=== PATIENT | female | born 1945 | race Caucasian/White ===

== ENCOUNTER 2020-12-04 16:06 | Emergency (ER) | payer OTHER, SELFPAY ==
[2020-12-04 16:16] VITALS: BP 135/64; PULSE 73; RESP 20; TEMP 36.6; O2SAT 98
--- NOTE | 2020-12-04 16:24 | DI.RAD.S_ITS ---
PROCEDURE: XR CHEST 1V INDICATIONS: chest pain TECHNIQUE: One view of the chest was acquired. COMPARISON: None. FINDINGS: Surgical changes and devices: None. Lungs and pleura: Lungs are clear. No pleural effusions or pneumothorax. Mediastinum: Mediastinal contours appear normal. Heart size is normal. Bones and chest wall: No suspicious bony lesions. Overlying soft tissues appear unremarkable. IMPRESSION: No acute process. Dictated by: Genesis Akins M.D. on 12/04/2020 at 17:00 Approved by: Genesis Akins M.D. on 12/04/2020 at 17:00
[2020-12-04] MEDS: SODIUM CHLORIDE 0.9% 1,000 ML 125 ML IV (17:01)
[2020-12-04 17:03] LABS: Add Manual Diff / Slide Review NO; Basophils Absolute Auto 0 /uL (0-100); Basophils Percent Auto 0.6 % (0-2); Eosinophils Absolute Auto 0 /uL (0-450); Eosinophils Percent Auto 0.7 % (2-4); Hematocrit 39.9 % (36-46); Hemoglobin 13.6 g/dL (12.0-16.0); Lymphocytes Absolute Auto 500 /uL (1100-4500); Lymphocytes Percent Auto 10.1 % (25-40); Mean Corpuscular HGB Conc 34.1 % (30-36); Mean Corpuscular Hemoglobin 32.1 PG (26-34); Mean Corpuscular Volume 94.1 fL (80-100); Monocytes Absolute Auto 700 /uL (0-900); Monocytes Percent Auto 16.1 % (3-14); Neutrophils Absolute Auto 3300 /uL (1500-7000); Neutrophils Percent Auto 72.5 % (50-75); Platelet Count 213 X10^3/uL (150-400); Red Blood Cell Count 4.24 X10^6/uL (4.0-5.2); Red Cell Distribution Width 13.4 % (11.6-14.8); White Blood Cell Count 4.5 X10^3/uL (4.5-11.0)
[2020-12-04 17:14] LABS: Alanine Aminotransferase 24 IU/L (<35); Albumin 3.9 g/dL (3.5-5.0); Albumin Globulin Ratio 1.4 (1.0-2.8); Alkaline Phosphatase 74 U/L (38-126); Aspartate Aminotransferase 33 IU/L (14-36); BUN Creatinine Ratio 32.2 (6-22); Bilirubin Total 0.2 mg/dL (0.2-1.3); Blood Urea Nitrogen 19 mg/dL (7-17); Carbon Dioxide 23 mmol/L (22-32); Chloride 102 mmol/L (98-107); Creatine Kinase 78 U/L (30-135); Estimated Glomerular Filt Rate > 60.0 mL/min (>60); Globulin 2.7 g/dL (1.7-4.1); Glucose 96 mg/dL (80-110); HEMOLYSIS < 15 (0-50); Lipase 55 U/L (23-300); Sodium 133 mmol/L (137-145); Total Protein 6.6 g/dL (6.3-8.2)
[2020-12-04 17:25] LABS: Troponin I < 0.012 ng/mL (0.01-0.034)
[2020-12-04 17:34] LABS: COVID19 -Nasal RAPID POSITIVE (Negative)
[2020-12-04 18:08] LABS: Lactate Dehydrogenase 559 U/L (313-618)
[2020-12-04 18:22] LABS: Bacteria Urine None Seen; RBC Urine None Seen (0-5/HPF); WBC Urine None Seen (0-5/HPF)
[2020-12-04 18:34] LABS: Appearance Urine UA CLEAR; Bilirubin Urine UA NEGATIVE (NEGATIVE); Color Urine UA YELLOW; Glucose Urine UA NEGATIVE (Negative); Ketones Urine UA NEGATIVE (NEGATIVE); Leukocyte Esterase Urine UA NEGATIVE (NEGATIVE); Nitrite Urine UA NEGATIVE (Negative); Occult Blood Urine UA TRACE-LYSED (Negative); Protein Urine UA NEGATIVE (Negative); Specific Gravity Urine UA <=1.005 (1.000-1.035); Urobilinogen Urine UA 0.2 E.U./dL (0.2)
--- NOTE | 2020-12-04 18:51 | ED.GENADULT ---
HPI - General Adult General Chief complaint: Weakness Stated complaint: exhausted for 10 days, got better, tanked today Time Seen by Provider: 12/04/20 18:30 Source: patient Mode of arrival: Ambulatory History of Present Illness HPI narrative: Patient is a 75-year-old female who is here with family for evaluation of feeling exhausted. Symptoms started approximately 10 days ago. She seemed to be improving but then today thinks seem to get worse. No chest pain. No shortness of breath. Has had some fevers and cough. She is greater than 2 weeks status post her 2nd Moderna COVID-19 vaccine. She has been taking Tylenol for symptoms. Review of Systems Constitutional Constitutional: Reports fatigue, Reports fever(s), Reports lethargy, Reports malaise and Reports weakness Eyes Eyes: Reports system reviewed and no additional complaints, except as documented ENT Ears, Nose, Mouth, and Throat: Reports system reviewed and no additional complaints, except as documented Cardiovascular Cardiovascular: Reports system reviewed and no additional complaints, except as documented Respiratory Respiratory: Reports chest congestion Gastrointestinal Gastrointestinal: Reports system reviewed and no additional complaints, except as documented Genitourinary Genitourinary: Reports system reviewed and no additional complaints, except as documented Musculoskeletal Musculoskeletal: Reports system reviewed and no additional complaints, except as documented Integumentary/Breasts Skin/Breast: Reports system reviewed and no additional complaints, except as documented Neurologic Neurologic: Reports weakness Endocrine Endocrine: Reports fatigue Hematologic/Lymphatic On Anticoagulants: No Allergic/Immunologic Allergic/Immunologic: Reports system reviewed and no additional complaints, except as documented Patient History Social History lives independently: Yes Exam Initial Vital Signs Initial Vital Signs: Vital Signs Temperature 97.8 F 12/04/20 16:16 Pulse Rate 73 12/04/20 16:16 Respiratory Rate 20 12/04/20 16:16 Blood Pressure 135/64 12/04/20 16:16 Pulse Oximetry 98 12/04/20 16:16 Const General: cooperative and comfortable HENMT Head: normal to inspection Eyes General: appearance normal, both eyes and all related structures Neck Neck: normal visual inspection Chest Chest: normal inspection of the chest Resp Effort & Inspection: normal respiratory effort Auscultation: clear to auscultation bilaterally Cardio Rate: regular rate Rhythm: regular rhythm GI Inspection: normal to inspection Skin General: no rashes or lesions noted Neuro General: patient alert, patient awake, patient oriented x3 and moves all extremities Extrem General: normal to inspection and capillary refill normal Psych Appearance: grossly normal and well kempt Course Orders Ordered: ED Orders 12/04/20 16:52 Complete Blood Count AUTO DIFF Stat Comprehensive Metabolic Panel Stat LDH [Lactate Dehydrogenase] Stat Lipase Stat Magnesium Stat Troponin & CK Cardiac Panel Stat 12/04/20 18:15 Urinalysis and Microscopic Stat Discontinued Medications Sodium Chloride (Normal Saline 0.9%) 1,000 mls @ 125 mls/hr IV BOLUS ONE Stop: 12/05/20 00:23 Last Infusion: 12/04/20 19:01 Dose: 0 mls/hr Documented by: Admin: 12/04/20 17:01 Dose: 125 mls/hr Documented by: AMADOR Vital Signs Vital signs: Vital Signs - 8 hr 12/04/20 19:14 Pulse Rate 77 Respiratory Rate 18 Blood Pressure 131/69 Pulse Oximetry 99 Medical Decision Making Lab Data Lab results reviewed: Yes I reviewed the patient's lab results. Result diagrams: 12/04/20 16:52 12/04/20 16:52 Labs: Lab Results 12/04/20 12/04/20 12/04/20 Range/Units 16:38 16:52 16:52 WBC 4.5 (4.5-11.0) X10^3/uL RBC 4.24 (4.0-5.2) X10^6/uL Hgb 13.6 (12.0-16.0) g/dL Hct 39.9 (36-46) % MCV 94.1 (80-100) fL MCH 32.1 (26-34) PG MCHC 34.1 (30-36) % RDW 13.4 (11.6-14.8) % Plt Count 213 (150-400) X10^3/uL Neut % (Auto) 72.5 (50-75) % Lymph % (Auto) 10.1 L (25-40) % [place] % (Auto) 16.1 H (3-14) % Eos % (Auto) 0.7 L (2-4) % Baso % (Auto) 0.6 (0-2) % Neut # (Auto) 3300 (3986-9790) /uL Lymph # (Auto) 500 L (0438-8319) /uL [place] # (Auto) 700 (0-900) /uL Eos # (Auto) 0 (0-450) /uL Baso # (Auto) 0 (0-100) /uL Sodium 133 L (137-145) mmol/L Potassium 4.0 (3.4-5.1) mmol/L Chloride 102 (98-107) mmol/L Carbon Dioxide 23 (22-32) mmol/L BUN 19 H (7-17) mg/dL Creatinine 0.59 (0.52-1.04) mg/dL Estimated GFR > 60.0 (>60) mL/min BUN/Creatinine Ratio 32.2 H (6-22) Glucose 96 (80-110) mg/dL Calcium 9.0 (8.4-10.2) mg/dL Magnesium 2.0 (1.6-2.3) mg/dL Total Bilirubin 0.2 (0.2-1.3) mg/dL AST 33 (14-36) IU/L ALT 24 (<35) IU/L Alkaline Phosphatase 74 (38-126) U/L Lactate Dehydrogenase (313-618) U/L Total Creatine Kinase 78 (30-135) U/L CK-MB (CK-2) TNP CK-MB (CK-2) Rel Index TNP Troponin I < 0.012 (0.01-0.034) ng/mL Total Protein 6.6 (6.3-8.2) g/dL Albumin 3.9 (3.5-5.0) g/dL Globulin 2.7 (1.7-4.1) g/dL Albumin/Globulin Ratio 1.4 (1.0-2.8) Lipase 55 (23-300) U/L Urine Color Urine Appearance Urine pH (4.5-8.0) Ur Specific [place] (1.000-1.035) Urine Protein (Negative) Urine Glucose (UA) (Negative) g/dL Urine Ketones (NEGATIVE) Urine Occult Blood (Negative) Urine Nitrate (Negative) Urine Bilirubin (NEGATIVE) Urine Urobilinogen (0.2) E.U./dL Ur Leukocyte Esterase (NEGATIVE) Urine RBC (0-5/HPF) Urine WBC (0-5/HPF) Urine Bacteria (None) Ur Culture Indicated? SARS-CoV-2 (PCR) Positive H (Negative) 08/03/21 08/03/21 Range/Units 16:52 18:15 WBC (4.5-11.0) X10^3/uL RBC (4.0-5.2) X10^6/uL Hgb (12.0-16.0) g/dL Hct (36-46) % MCV (80-100) fL MCH (26-34) PG MCHC (30-36) % RDW (11.6-14.8) % Plt Count (150-400) X10^3/uL Neut % (Auto) (50-75) % Lymph % (Auto) (25-40) % [place] % (Auto) (3-14) % Eos % (Auto) (2-4) % Baso % (Auto) (0-2) % Neut # (Auto) (4476-3372) /uL Lymph # (Auto) (4594-7177) /uL [place] # (Auto) (0-900) /uL Eos # (Auto) (0-450) /uL Baso # (Auto) (0-100) /uL Sodium (137-145) mmol/L Potassium (3.4-5.1) mmol/L Chloride (98-107) mmol/L Carbon Dioxide (22-32) mmol/L BUN (7-17) mg/dL Creatinine (0.52-1.04) mg/dL Estimated GFR (>60) mL/min BUN/Creatinine Ratio (6-22) Glucose (80-110) mg/dL Calcium (8.4-10.2) mg/dL Magnesium (1.6-2.3) mg/dL Total Bilirubin (0.2-1.3) mg/dL AST (14-36) IU/L ALT (<35) IU/L Alkaline Phosphatase (38-126) U/L Lactate Dehydrogenase 559 (313-618) U/L Total Creatine Kinase (30-135) U/L CK-MB (CK-2) CK-MB (CK-2) Rel Index Troponin I (0.01-0.034) ng/mL Total Protein (6.3-8.2) g/dL Albumin (3.5-5.0) g/dL Globulin (1.7-4.1) g/dL Albumin/Globulin Ratio (1.0-2.8) Lipase (23-300) U/L Urine Color Yellow Urine Appearance Clear Urine pH 7.0 (4.5-8.0) Ur Specific [place] <=1.005 (1.000-1.035) Urine Protein Negative (Negative) Urine Glucose (UA) Negative (Negative) g/dL Urine Ketones Negative (NEGATIVE) Urine Occult Blood Trace-lysed (Negative) Urine Nitrate Negative (Negative) Urine Bilirubin Negative (NEGATIVE) Urine Urobilinogen 0.2 (0.2) E.U./dL Ur Leukocyte Esterase Negative (NEGATIVE) Urine RBC None seen (0-5/HPF) Urine WBC None seen (0-5/HPF) Urine Bacteria None seen (None) Ur Culture Indicated? Cult not indicated SARS-CoV-2 (PCR) (Negative) Imaging Data Chest x-ray: Radiologist's Impression: [address] [id number] ReportSigned Patient: Vanessa Mccain WMR#: [id number]: 3Acct:[id number]/Sex: 75 / FDate of Service: 12/04/20Loc: EDAccession Number: [id number] Procedure: XR chest 1V Ordering Provider: Mildred Mendez D.O. PROCEDURE: XR CHEST 1V INDICATIONS: chest pain TECHNIQUE: One view of the chest was acquired. COMPARISON: None. FINDINGS: Surgical changes and devices: None. Lungs and pleura: Lungs are clear. No pleural effusions or pneumothorax. Mediastinum: Mediastinal contours appear normal. Heart size is normal. Bones and chest wall: No suspicious bony lesions. Overlying soft tissues appear unremarkable. IMPRESSION: No acute process. Dictated by: Genesis Akins M.D. on 12/04/2020 at 17:00 Approved by: Genesis Akins M.D. on 12/04/2020 at 17:00 ECG Data Attestation: I personally reviewed and interpreted this ECG as follows: Interpretation: Sinus rhythm Ventricular rate is 61 Normal axis Normal QRS Normal QTC No ST T wave changes MDM Narrative Medical decision making narrative: Patient is positive for COVID-19. This does explain her presenting symptoms. She is not hypoxic. Not tachypneic. Is a clear lung exam. Chest x-ray is unremarkable. Labs reassuring. EKG reassuring. The long discussion with the patient and family at bedside regarding quarantine we also discussed strict return precautions. Will discharge home. Patient expressed understanding agreement the plan. Discharge Plan Departure Patient Disposition: Home Clinical Impression: COVID-19 Instructions: DI for COVID-19 (Suspected or Confirmed ), How to Care for Someone with COVID-19 Activity Restrictions/Additional Instructions: You were positive for COVID-19. This means that your now to isolate yourself for the next 10 days and be symptom-free for 24 hours. Continue all of your medications as directed. Return to the emergency department for any new or worsening symptoms
[2020-12-04 18:52] LABS: Culture Indicated Urine Cult Not Indicated
[2020-12-04 19:14] VITALS: BP 131/69; PULSE 77; RESP 18; O2SAT 99
== END 2020-12-04 19:14 | disposition home or self-care (01) ==
PROVIDERS: Emergency Medicine; Emergency Provider Emergency Medicine
DX: U07.1 COVID-19 (principal); R50.9 Fever, unspecified; R07.9 Chest pain, unspecified
CPT/HCPCS: 36415; 71045; 80053; 81001; 82550; 83615; 83690; 83735; 84484; 85025; 87635; 93005; 96360; 96361; 99284; C9803

== ENCOUNTER 2020-12-18 12:24 | Emergency (ER) | payer OTHER, SELFPAY ==
[2020-12-18] VITALS (13 sets, daily range): BP systolic 108–170; BP diastolic 52–72; PULSE 48–66; RESP 13–25; TEMP 36.8; O2SAT 93–98
--- NOTE | 2020-12-18 12:58 | DI.RAD.S_ITS ---
PROCEDURE: XR CHEST 1V INDICATIONS: fever eval for PNA TECHNIQUE: One view of the chest was acquired. COMPARISON: [facility], CR, XR CHEST 1V, 12/04/2020, 16:31. FINDINGS: Surgical changes and devices: Bilateral humeral suture anchors stable in appearance. Lungs and pleura: Lungs are clear. No pleural effusions or pneumothorax. Mediastinum: Mediastinal contours appear normal. Heart size is normal. Bones and chest wall: No suspicious bony lesions. Overlying soft tissues appear unremarkable. IMPRESSION: No acute cardiopulmonary disease process. Dictated by: Hilda Willams MD, PhD on 12/18/2020 at 13:14 Approved by: Hilda Willams MD, PhD on 12/18/2020 at 13:14
[2020-12-18 13:10] LABS: COVID19 -Nasal RAPID POSITIVE (Negative)
[2020-12-18 13:52] LABS: Add Manual Diff / Slide Review NO; Basophils Absolute Auto 0 /uL (0-100); Basophils Percent Auto 0.7 % (0-2); Eosinophils Absolute Auto 100 /uL (0-450); Eosinophils Percent Auto 1.8 % (2-4); Hematocrit 35.2 % (36-46); Hemoglobin 11.9 g/dL (12.0-16.0); Lymphocytes Absolute Auto 400 /uL (1100-4500); Lymphocytes Percent Auto 8.8 % (25-40); Mean Corpuscular HGB Conc 33.8 % (30-36); Mean Corpuscular Hemoglobin 31.6 PG (26-34); Mean Corpuscular Volume 93.3 fL (80-100); Monocytes Absolute Auto 800 /uL (0-900); Monocytes Percent Auto 16.5 % (3-14); Neutrophils Absolute Auto 3600 /uL (1500-7000); Neutrophils Percent Auto 72.2 % (50-75); Platelet Count 248 X10^3/uL (150-400); Red Blood Cell Count 3.77 X10^6/uL (4.0-5.2); Red Cell Distribution Width 12.7 % (11.6-14.8)
[2020-12-18 14:00] LABS: BUN Creatinine Ratio 23.3 (6-22); Blood Urea Nitrogen 14 mg/dL (7-17); Calcium 8.8 mg/dL (8.4-10.2); Carbon Dioxide 22 mmol/L (22-32); Chloride 105 mmol/L (98-107); Estimated Glomerular Filt Rate > 60.0 mL/min (>60); Glucose 99 mg/dL (80-110); HEMOLYSIS 24 (0-50); Lactate (Lactic Acid) 0.8 mmol/L (0.7-2.1); Potassium 3.9 mmol/L (3.4-5.1); Sodium 133 mmol/L (137-145)
[2020-12-18 14:17] LABS: Procalcitonin 0.06 ng/mL (<0.5)
[2020-12-18] MEDS: SODIUM CHLORIDE 0.9% 1,000 ML 1000 ML IV (14:35)
--- NOTE | 2020-12-18 15:20 | ED.GENADULT ---
HPI - General Adult General Chief complaint: Fever Stated complaint: NEW FEVER, COVID+ 2 WKS AGO, SOB Time Seen by Provider: 12/18/20 12:56 Source: patient and family Mode of arrival: Wheelchair Limitations: no limitations History of Present Illness HPI narrative: Patient is a 75-year-old female who was evaluated by myself approximately 2 weeks ago. Was diagnosed with COVID. Was not hypoxic. Was nontoxic appearing. Was discharged home. Since that time her symptoms did seem to improve somewhat however over the past 24-48 hours she seems to have worsened. She has had a fever. Has become very fatigued. Has had dizziness, her vertigo was returned, and some shortness of breath. She did not have any retesting since her last positive test. Related Data Allergies Allergy/AdvReac Type Severity Reaction Status Date / Time No Known Drug Allergies Allergy Verified 12/18/20 14:19 Review of Systems Constitutional Constitutional: Reports chills, Reports fatigue, Reports fever(s), Reports headache(s) and Reports lethargy Eyes Eyes: Reports as per HPI ENT Ears, Nose, Mouth, and Throat: Reports headache(s) Cardiovascular Cardiovascular: Reports system reviewed and no additional complaints, except as documented Respiratory Respiratory: Reports as per HPI Gastrointestinal Gastrointestinal: Reports system reviewed and no additional complaints, except as documented Genitourinary Genitourinary: Reports system reviewed and no additional complaints, except as documented Musculoskeletal Musculoskeletal: Reports system reviewed and no additional complaints, except as documented Integumentary/Breasts Skin/Breast: Reports system reviewed and no additional complaints, except as documented Neurologic Neurologic: Reports headache(s) Endocrine Endocrine: Reports fatigue Hematologic/Lymphatic On Anticoagulants: No Allergic/Immunologic Allergic/Immunologic: Reports system reviewed and no additional complaints, except as documented Patient History Medical History COVID-19 Social History lives independently: Yes Smoking Status: Never smoker Smoking Status: Never smoker alcohol intake frequency: 0-2 drinks per day Substance Use Type: does not use Exam Initial Vital Signs Initial Vital Signs: Vital Signs Temperature 98.2 F 12/18/20 12:30 Pulse Rate 66 12/18/20 12:30 Respiratory Rate 16 12/18/20 12:30 Blood Pressure 108/52 L 12/18/20 12:30 Pulse Oximetry 94 12/18/20 12:30 Const General: cooperative, comfortable and well developed [facility] Head: normal to inspection and normocephalic Eyes General: appearance normal, both eyes and all related structures Chest Chest: normal inspection of the chest Resp Effort & Inspection: normal respiratory effort Auscultation: clear to auscultation bilaterally Cardio Rate: regular rate Rhythm: regular rhythm GI Inspection: normal to inspection Skin General: no rashes or lesions noted Neuro General: patient alert, patient awake, patient oriented x3 and moves all extremities Extrem General: normal to inspection and capillary refill normal Psych Appearance: grossly normal and well kempt Course Orders Ordered: ED Orders 12/18/20 12:37 COVID19 -Nasal swab/Pre-Proc Stat 12/18/20 12:58 XR chest 1V Stat 12/18/20 13:45 Basic Metabolic Panel Stat Complete Blood Count AUTO DIFF Stat Lactate (Lactic Acid) Stat Procalcitonin Stat 12/18/20 15:24 Troponin & CK Cardiac Panel Stat Discontinued Medications Sodium Chloride (Normal Saline 0.9%) 1,000 mls @ 1,000 mls/hr IV BOLUS PRN PRN Reason: Fluid replacement Sodium Chloride (Normal Saline 0.9%) 1,000 mls @ 1,000 mls/hr IV BOLUS ONE Stop: 12/18/20 15:34 Last Infusion: 12/18/20 15:35 Dose: 0 mls/hr Documented by: Admin: 12/18/20 14:35 Dose: 1,000 mls/hr Documented by: AMADOR Nystatin (Nystatin Susp 500,000 Unit/5 Ml Ud) 500,000 unit PO NOW ONE Stop: 12/18/20 15:25 Last Admin: 12/18/20 15:35 Dose: 500,000 unit Documented by: AMADOR Vital Signs Vital signs: Vital Signs - 8 hr 12/18/20 12:30 12/18/20 13:00 12/18/20 13:01 Temperature 98.2 F Pulse Rate 66 50 L 50 L Respiratory Rate 16 18 Blood Pressure 108/52 L 146/63 H Pulse Oximetry 94 97 97 12/18/20 13:30 12/18/20 13:31 12/18/20 14:00 Temperature Pulse Rate 51 L 51 L 48 L Respiratory Rate 17 22 22 Blood Pressure 119/56 L 132/63 Pulse Oximetry 94 93 96 12/18/20 14:30 12/18/20 14:31 12/18/20 15:00 Temperature Pulse Rate 53 L 51 L 48 L Respiratory Rate 21 17 21 Blood Pressure 170/71 H Pulse Oximetry 95 97 98 12/18/20 15:01 12/18/20 15:30 12/18/20 16:00 Temperature Pulse Rate 48 L 51 L 61 Respiratory Rate 25 H 13 17 Blood Pressure 156/69 H 169/71 H Pulse Oximetry 98 97 95 12/18/20 16:01 Temperature Pulse Rate Respiratory Rate Blood Pressure 158/72 H Pulse Oximetry Medical Decision Making Medical Records Medical records reviewed: Yes I reviewed the patient's medical records. Lab Data Lab results reviewed: Yes I reviewed the patient's lab results. Result diagrams: 12/18/20 13:45 12/18/20 13:45 Labs: Lab Results 12/18/20 12/18/20 12/18/20 Range/Units 12:37 13:45 13:45 WBC 5.0 (4.5-11.0) X10^3/uL RBC 3.77 L (4.0-5.2) X10^6/uL Hgb 11.9 L (12.0-16.0) g/dL Hct 35.2 L (36-46) % MCV 93.3 (80-100) fL MCH 31.6 (26-34) PG MCHC 33.8 (30-36) % RDW 12.7 (11.6-14.8) % Plt Count 248 (150-400) X10^3/uL Neut % (Auto) 72.2 (50-75) % Lymph % (Auto) 8.8 L (25-40) % [place] % (Auto) 16.5 H (3-14) % Eos % (Auto) 1.8 L (2-4) % Baso % (Auto) 0.7 (0-2) % Neut # (Auto) 3600 (8828-7849) /uL Lymph # (Auto) 400 L (0915-2257) /uL [place] # (Auto) 800 (0-900) /uL Eos # (Auto) 100 (0-450) /uL Baso # (Auto) 0 (0-100) /uL Sodium 133 L (137-145) mmol/L Potassium 3.9 (3.4-5.1) mmol/L Chloride 105 (98-107) mmol/L Carbon Dioxide 22 (22-32) mmol/L BUN 14 (7-17) mg/dL Creatinine 0.60 (0.52-1.04) mg/dL Estimated GFR > 60.0 (>60) mL/min BUN/Creatinine Ratio 23.3 H (6-22) Glucose 99 (80-110) mg/dL Lactate (0.7-2.1) mmol/L Calcium 8.8 (8.4-10.2) mg/dL Total Creatine Kinase (30-135) U/L CK-MB (CK-2) CK-MB (CK-2) Rel Index Troponin I (0.01-0.034) ng/mL Procalcitonin 0.06 (<0.5) ng/mL SARS-CoV-2 (PCR) Positive H (Negative) 12/18/20 12/18/20 Range/Units 13:45 15:24 WBC (4.5-11.0) X10^3/uL RBC (4.0-5.2) X10^6/uL Hgb (12.0-16.0) g/dL Hct (36-46) % MCV (80-100) fL MCH (26-34) PG MCHC (30-36) % RDW (11.6-14.8) % Plt Count (150-400) X10^3/uL Neut % (Auto) (50-75) % Lymph % (Auto) (25-40) % [place] % (Auto) (3-14) % Eos % (Auto) (2-4) % Baso % (Auto) (0-2) % Neut # (Auto) (0791-2662) /uL Lymph # (Auto) (8260-2569) /uL [place] # (Auto) (0-900) /uL Eos # (Auto) (0-450) /uL Baso # (Auto) (0-100) /uL Sodium (137-145) mmol/L Potassium (3.4-5.1) mmol/L Chloride (98-107) mmol/L Carbon Dioxide (22-32) mmol/L BUN (7-17) mg/dL Creatinine (0.52-1.04) mg/dL Estimated GFR (>60) mL/min BUN/Creatinine Ratio (6-22) Glucose (80-110) mg/dL Lactate 0.8 (0.7-2.1) mmol/L Calcium (8.4-10.2) mg/dL Total Creatine Kinase 44 (30-135) U/L CK-MB (CK-2) TNP CK-MB (CK-2) Rel Index TNP Troponin I < 0.012 (0.01-0.034) ng/mL Procalcitonin (<0.5) ng/mL SARS-CoV-2 (PCR) (Negative) Urine Dip Bedside Urine Glucose Negative Bedside Urine Bilirubin - Negative Bedside Urine Ketone - Negative Urine Specific [place] 1.010 Bedside Urine Occult Blood - Negative Bedside Urine pH 6.0 Bedside Urine Protein - Negative Bedside Urine Urobilinogen - Negative Bedside Urine Nitrite - Negative Bedside Urine Leukocytes - Negative Esterase Point of care testing: Urine Dip Bedside Urine Glucose Negative Bedside Urine Bilirubin - Negative Bedside Urine Ketone - Negative Urine Specific [place] 1.010 Bedside Urine Occult Blood - Negative Bedside Urine pH 6.0 Bedside Urine Protein - Negative Bedside Urine Urobilinogen - Negative Bedside Urine Nitrite - Negative Bedside Urine Leukocytes - Negative Esterase Imaging Data Chest x-ray: Radiologist's Impression: [address] [id number] ReportSigned Patient: Vanessa Mccain WMR#: [id number]: 3Acct:[id number]/Sex: 75 / FDate of Service: 12/18/20Loc: EDAccession Number: [id number] Procedure: XR chest 1V Ordering Provider: Rigoberto Pop D.O. PROCEDURE: XR CHEST 1V INDICATIONS: fever eval for PNA TECHNIQUE: One view of the chest was acquired. COMPARISON: [facility], , XR CHEST 1V, 12/04/2020, 16:31. FINDINGS: Surgical changes and devices: Bilateral humeral suture anchors stable in appearance. Lungs and pleura: Lungs are clear. No pleural effusions or pneumothorax. Mediastinum: Mediastinal contours appear normal. Heart size is normal. Bones and chest wall: No suspicious bony lesions. Overlying soft tissues appear unremarkable. IMPRESSION: No acute cardiopulmonary disease process. Dictated by: Hilda Willams MD, PhD on 12/18/2020 at 13:14 Approved by: Hilda Willams MD, PhD on 12/18/2020 at 13:14 [facility] Narrative Medical decision making narrative: Patient is nontoxic appearing. Chest x-ray is consistent with someone who is COVID. She is COVID positive today. Unsure this is a continuation of her previous positive result or reinfection. Given her presentation I suspect this is just a continuation of her symptoms. Patient is not hypoxic. Not tachypneic. No indication for antibiotics. No indication for admission to the hospital. Had a discussion with the patient and her daughter at bedside regarding her symptoms. Provided reassurance and will discharge home with continued follow-up instructions and return precautions. They expressed understanding and agreement. Discharge Plan Departure Patient Disposition: Home Clinical Impression: COVID-19 Instructions: DI for COVID-19 (Suspected or Confirmed ), How to Care for Someone with COVID-19 Activity Restrictions/Additional Instructions: Your workup here in the emergency department is very reassuring. Your chest x-ray does not show any signs of pneumonia. Your oxygen saturations were appropriate here in the ER. The workup your heart was also very reassuring. I recommend that you continue to take Tylenol for any fevers or body aches. Continue to quarantine yourself. Contact your primary doctor for a follow-up. Return to the emergency department for any new or worsening symptoms
[2020-12-18 15:32] LABS: Creatine Kinase 44 U/L (30-135)
[2020-12-18] MEDS: NYSTATIN SUSP 500,000 UNIT/5 ML UDC 500000 UNIT PO (15:35)
[2020-12-18 15:46] LABS: Troponin I < 0.012 ng/mL (0.01-0.034)
== END 2020-12-18 16:20 | disposition home or self-care (01) ==
PROVIDERS: Emergency Provider Emergency Medicine
DX: U07.1 COVID-19 (principal); R51.9 Headache, unspecified; R50.9 Fever, unspecified
CPT/HCPCS: 36415; 71045; 80048; 81003; 82550; 83605; 84145; 84484; 85025; 87635; 99284; C9803